=== PATIENT | male | born 1935 | race Caucasian/White ===

== ENCOUNTER 2021-02-05 08:16 | Inpatient (IN) | payer MEDICARE, OTHER ==
[~2021-02-05] VITALS: Ht 188 cm; Wt 63.1 kg
--- NOTE | 2021-02-05 08:26 | PHYS DOC ---
Past History Past Medical History: CHF (diastolic), COPD, Dementia, GERD, High Cholesterol, Hypothyroid Adult General HPI HPI Patient is a 85-year-old male presenting [facility] for shortness of breath. Patient was reportedly found in the 70s on morning rounds by medical [facility] nursing staff. He was placed on 2 L oxygen via nasal cannula and EMS was called. On arrival, patient was found to be in no acute distress with O2 saturations greater than 90% on 2 L oxygen nasal cannula and otherwise hemodynamically stable. There have been no major changes in patient's baseline health, no medication changes, no obvious sick contacts, he was recently tested for Covid at his facility and negative. Patient arrives with [facility]ent[facility] papers confirming he is full CODE STATUS Review of Systems Review of Systems Fourteen body systems of review of systems have been reviewed. See HPI for perti nent positives and negative responses, other traylor all other systems are negative, non-pertinent or non-contributory Physical Exam Physical Exam Constitutional: Well developed, age-appropriate, appears thin and malnourished, nontoxic in appearance HENT: Normocephalic, atraumatic, bilateral external ears normal, oropharynx moist, no oral exudates, nose normal. Eyes: PERRLA, EOMI, conjunctiva normal, no discharge. Neck: Normal range of motion, no tenderness, supple, no stridor. Cardiovascular: Heart rate regular, sinus rhythm, no murmurs rubs or gallops Lungs & Thorax: No increased work of breathing or obvious respiratory distress, no accessory muscle use, there are rales in bilateral lung bases Lt>Rt Abdomen: Bowel sounds normal, soft, no tenderness, no masses, no pulsatile masses. Nonsurgical abdomen, no peritoneal signs Skin: Warm, dry, no erythema, no rash. Back: No tenderness, no CVA tenderness. Extremities: No tenderness, no cyanosis, no clubbing, ROM intact, no edema. Neurologic: Alert and oriented X 3, grossly normal motor & sensory function, no focal deficits noted. Psychologic: Affect normal, judgement normal, mood normal. Current Patient Data Vital Signs Vital Signs Date Time Temp Pulse Resp B/P (MAP) Pulse Ox O2 Delivery O2 Flow Rate FiO2 02/05/21 08:24 98.4 86 18 128/75 (92) 98 2.0 Vital Signs Date Time Temp Pulse Resp B/P (MAP) Pulse Ox O2 Delivery O2 Flow Rate FiO2 02/05/21 08:24 98.4 86 18 128/75 (92) 98 2.0 Lab Results Laboratory Tests Test 02/05/21 08:35 White Blood Count 8.1 x10^3/uL Red Blood Count 3.60 x10^6/uL Hemoglobin 11.1 g/dL Hematocrit 33.1 % Mean Corpuscular Volume 92 fL Mean Corpuscular Hemoglobin 31 pg Mean Corpuscular Hemoglobin Concent 34 g/dL Red Cell Distribution Width 15.0 % Platelet Count 308 x10^3/uL Neutrophils (%) (Auto) 82 % Lymphocytes (%) (Auto) 8 % Monocytes (%) (Auto) 8 % Eosinophils (%) (Auto) 1 % Basophils (%) (Auto) 1 % Neutrophils # (Auto) 6.6 x10^3uL Lymphocytes # (Auto) 0.6 x10^3/uL Monocytes # (Auto) 0.7 x10^3/uL Eosinophils # (Auto) 0.1 x10^3/uL Basophils # (Auto) 0.0 x10^3/uL Sodium Level 142 mmol/L Potassium Level 4.0 mmol/L Chloride Level 104 mmol/L Carbon Dioxide Level 28 mmol/L Anion Gap 10 Blood Urea Nitrogen 13 mg/dL Creatinine 0.9 mg/dL Estimated GFR (Cockcroft-Gault) 79.8 Glucose Level 123 mg/dL Lactic Acid Level 1.2 mmol/L Calcium Level 8.9 mg/dL Troponin I Quantitative 0.065 ng/mL XV-Cdx-T-Type Natriuretic Peptide 63213 pg/mL Current Medications Medications (Trade) Dose Ordered Sig/Ramakrishna Route PRN Reason Start Time Stop Time Status Last Admin Dose Admin Furosemide (Lasix) 40 mg 1X ONCE IVP 02/05/21 09:15 02/05/21 09:16 UNV EKG EKG EKG ordered and interpreted by myself at 0829 hrs. as sinus rhythm at 85 bpm, unremarkable intervals, left axis deviation, T wave inversions noted in leads V4, V5 and V6, no STEMI Radiology/Procedures Radiology/Procedures EXAM: Chest, single view. HISTORY: Shortness of breath. COMPARISON: None. FINDINGS: A frontal view of the chest is obtained. There is diffuse mixed interstitial and alveolar infiltrate. There are small right and moderate left pleural effusions. There is cardiomegaly and evidence of prior CABG. There is no pneumothorax. There is incidental superior migration of the humeral heads due to chronic rotator cuff tears. 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 IMPRESSION: 1. Diffuse mixed interstitial and alveolar infiltrate. 2. Small right and moderate left pleural effusions. 3. Cardiomegaly and postoperative mediastinal changes. Electronically signed by: Jayashree Ellington MD (02/05/2021 8:35 AM) [id number] Heart Score C/O Chest Pain: No HEART Score for Chest Pain: HEART Score for Chest Pain Response (Comments) Value History Slighlty/Non-Suspicious 0 ECG Normal 0 Age > 65 2 Risk Factors >3 Risk Factors or Hx CAD 2 Troponin >1-<3x Normal Limit 1 Total 5 Risk Factors: Risk Factors: DM, Current or recent (<one month) smoker, HTN, HLP, family history of CAD, obesity. Risk Scores: Risk Factors: DM, Current or recent (<one month) smoker, HTN, HLP, family history of CAD, obesity. Course & Med Decision Making Course & Med Decision Making Airway patent, breathing unlabored, IV access and vitals obtained concerning for continued hypoxia on room air HPI limited due to underlying dementia, physical exam and comprehensive ER work- up concerning for fluid overloaded state. Per chart review it appears patient has history of pleural effusions that appear worse today than from prior visits Troponin elevated with lateral T wave inversion, likely supply demand mismatch from fluid overload in an otherwise asymptomatic individual Discussed with patient my concern about his ability to discharge back to [facility] with care he will need to become more euvolemic and rule out any life- threatening cardiopulmonary abnormalities. I discussed need for admission with hospitalist who ultimately accepted patient care at [facility] 80 mg IV Lasix administered. Patient still requiring supplemental oxygen. No chest pain/pressure or other concerning signs or symptoms. No obvious signs of infectious etiology nor coagulopathy such as pulmonary embolism at present. We will continue to mami Strickland Disclaimer Em Disclaimer This electronic medical record was generated, in whole or in part, using a voice recognition dictation system. Departure Departure: Impression: Primary Impression: Acute exacerbation of CHF (congestive heart failure) Additional Impressions: Fluid overload Elevated troponin Respiratory failure with hypoxia Disposition: ADMITTED INPATIENT Admitting Physician: Ivan Galarza Condition: STABLE Problem Qualifiers ROD KONG DO Feb 05, 2021 08:26
--- NOTE | 2021-02-05 08:38 | RAD ---
EXAM: Chest, single view. HISTORY: Shortness of breath. COMPARISON: None. FINDINGS: A frontal view of the chest is obtained. There is diffuse mixed interstitial and alveolar i nfiltrate. There are small right and moderate left pleural effusions. There is cardiomegaly and evide nce of prior CABG. There is no pneumothorax. There is incidental superior migration of the humeral he ads due to chronic rotator cuff tears. 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 IMPRESSION: 1. Diffuse mixed interstitial and alveolar infiltrate. 2. Small right and moderate left pleural effusions. 3. Cardiomegaly and postoperative mediastinal changes. Electronically signed by: Jayashree Ellington MD (02/05/2021 8:35 AM) [id number]
[2021-02-05 09:02] LABS: BASO % 1 % (0-3); EOS # 0.1 x10^3/uL (0.0-0.7); EOS % 1 % (0-3); HEMATOCRIT 33.1 % (39.0-53.0); HEMOGLOBIN 11.1 g/dL (13.0-17.5); LYMPH # 0.6 x10^3/uL (1.0-4.8); LYMPH % 8 % (24-48); MEAN CORPUSCULAR HEMOGLOBIN 31 pg (25-35); MEAN CORPUSCULAR HGB CONC 34 g/dL (31-37); MEAN CORPUSCULAR VOLUME 92 fL (79-100); MONO # 0.7 x10^3/uL (0.0-1.1); MONO % 8 % (0-9); NEUT # 6.6 x10^3uL (1.8-7.7); NEUT % 82 % (31-73); PLATELET COUNT 308 x10^3/uL (140-400); WHITE BLOOD COUNT 8.1 x10^3/uL (4.0-11.0)
[2021-02-05 09:04] LABS: CALCIUM 8.9 mg/dL (8.5-10.1); CREATININE 0.9 mg/dL (0.7-1.3); GFR 79.8
--- NOTE | 2021-02-05 09:12 | EKG ---
[address] [address] Test Date: 2021-02-05 Test Time: 08:23:04 Pat Name: [facility] Department: Room: Gender: M Staffing Analyst: : [id number] Requested By: ROD KONG Order Number: [id number] Reading MD: Ki Wray MD Measurements Intervals Mcgraw Rate: 85 P: 83 NJ: 198 QRS: -34 QRSD: 104 T: 121 QT: 390 QTc: 470 Interpretive Statements SINUS RHYTHM SEPTAL INFARCT LBBB PATTERN CONSIDER PRIOR INFERIOR INFARCT Electronically Signed On 02-05-2021 10:59:40 CDT by Ki Wray MD
[2021-02-05] MEDS ORDERED: FUROSEMIDE 40 MG/4 ML VIAL IVP ONE ×2 (09:15→09:30)
[2021-02-05] MEDS ORDERED: ACETAMINOPHEN 325 MG TABLET PO PRN (09:45)
--- NOTE | 2021-02-05 10:26 | HP ---
DATE OF SERVICE: 02/05/2021 ADMIT DATE: 02/05/2021 ATTENDING PHYSICIAN: Dr. Galarza. CHIEF COMPLAINT: Shortness of breath. HISTORY OF PRESENT ILLNESS: The patient is an 85-year-old gentleman, resident of a local retirement. He has chronic congestive heart failure. He was brought in by EMS personnel at [facility] with significant dyspnea. Supplemental oxygen was administered, saturations came up to 90%. No major change the patient's baseline health. Followup x-ray showed cardiomegaly, bilateral pleural effusions which seems to be a bit more than a previously established. He is on a small dose of Lasix, intravenous Lasix IV 80 mg was administered in the ED. He is admitted for treatment of acute on chronic congestive heart failure. PAST MEDICAL HISTORY: Significant for chronic diastolic congestive heart failure, COPD, dementia, gastroesophageal reflux disease and hypothyroidism. SURGERIES: Include coronary artery bypass and graft. ALLERGIES: He has multiple allergies including MORPHINE, LISINOPRIL, LATEX, ERYTHROMYCIN AND ZOCOR. CURRENT MEDICATIONS: From the retirement reviewed. They include the following: He was on scheduled aspirin, atropine, Coreg, Celexa, vitamin B12, omega 3 fish oil, Lasix 20 mg a day, Haldol, glucosamine, ibuprofen p.r.n., losartan and Tylenol. SOCIAL HISTORY: He is a nonsmoker, nondrinker. FAMILY HISTORY: Unobtainable. REVIEW OF SYSTEMS: Unobtainable due to the patient's condition. PHYSICAL EXAMINATION: GENERAL: When I saw him, this is a chronically ill-appearing elderly gentleman who was a bit confused. VITAL SIGNS: Initial vital signs showed a blood pressure of 128/75, temperature 98.4 degrees Fahrenheit, pulse 86 and regular, oxygen saturation is now 98% on 2 liters by nasal cannula. HEENT: Head is without trauma. Pupils are reactive. Sclerae is nonicteric. The oropharynx is clear. NECK: Supple, no bruits identified. LUNGS: Diminished breath sounds at bases. CARDIOVASCULAR: Regular heart tones. No gallop. ABDOMEN: Soft. EXTREMITIES: Without edema. NEUROLOGIC: Focally intact. Speech is fluent. He is pleasantly confused. SKIN: Warm and dry. PERTINENT LABORATORY STUDIES: Admission hemoglobin was 11.1 g/dL with a white count of 8100. BNP is 12,288. First set of cardiac enzymes slightly elevated at 0.065. Nonfasting blood sugar 123. Electrolytes within normal range. ASSESSMENT: 1. An 85-year-old gentleman with acute on chronic diastolic congestive heart failure. 2. Ischemic cardiomyopathy. 3. Coronary artery disease. 4. Underlying dementia. 5. Hypertension. 6. History of gastroesophageal reflux disease. 7. Generalized debilitation. 8. Report of type 2 diabetes. He is not on any regimen right now. PLAN: 1. Admit to the inpatient unit. 2. Daily weights with I and O's. 3. 1200 mL fluid restriction. 4. Diuresis with Lasix. 5. Serial chemistries. 6. I shall verify his code status from the retirement. His prognosis is guarded. JENNIFER DR: Carla TID: [id number] CC: Rochelle Bingham MD
[2021-02-05 12:05] VITALS: BP 131/78
--- NOTE | 2021-02-05 12:30 | NUR ---
Pt arrived to unit @ 1205 via EMS on 2L NC. KALLIE. ROBERTON. Oriented to room. Call light given to pt. Awaiting COVID PCR. Gwyn in place. Pt belongings include glasses, necklace, watch, wrist band from previous facility, pants, shirt, black socks, and tennis shoes. Items placed in green personal belongings bag and kept in room.
[2021-02-05 15:51] VITALS: BP 140/77
[2021-02-05] MEDS ORDERED: CITA10TA8 PO (16:34)
[2021-02-05] MEDS ORDERED: FURO20TA3 PO (16:34)
[2021-02-05] MEDS ORDERED: LOSA25TA11 PO (16:34)
[2021-02-05] MEDS ORDERED: HALO0.5T PO (16:34)
[2021-02-05] MEDS ORDERED: OMEG1CAP68 PO (16:34)
[2021-02-05] MEDS ORDERED: ATRO2DRO3 OS (16:34)
[2021-02-05] MEDS ORDERED: ASPI325T11 PO (16:34)
[2021-02-05] MEDS ORDERED: CARV3.1230 PO (16:34)
[2021-02-05] MEDS: CARVEDILOL 3.125 MG TABLET PO SCH (17:29)
[2021-02-05 19:10] VITALS: BP 100/62
[2021-02-05] MEDS: FUROSEMIDE 100 MG/10 ML VIAL IVP SCH (21:43)
[2021-02-05] MEDS: POTASSIUM CHLORIDE 20 MEQ TABLET.ER. PO SCH (21:43)
[2021-02-05 22:30] VITALS: BP 107/67
[2021-02-06 06:19] LABS: CALCIUM 8.8 mg/dL (8.5-10.1); GFR 70.5; POTASSIUM 3.6 mmol/L (3.5-5.1)
[2021-02-06 06:30] VITALS: BP 117/68
[2021-02-06] MEDS: POTASSIUM CHLORIDE 20 MEQ TABLET.ER. PO SCH (08:18)
[2021-02-06] MEDS: CITALOPRAM 20 MG TABLET. PO SCH (08:18)
[2021-02-06] MEDS: ASPIRIN 325 MG TABLET PO SCH (08:18)
[2021-02-06] MEDS: CARVEDILOL 3.125 MG TABLET PO SCH ×2 (08:19→17:00)
[2021-02-06] MEDS: FUROSEMIDE 100 MG/10 ML VIAL IVP SCH ×2 (08:22→14:00)
[2021-02-06] MEDS ORDERED: MAGNESIUM SULFATE 1GM 100 ML IV ONE (08:45)
--- NOTE | 2021-02-06 08:50 | PN ---
DATE: 02/06/2021 ATTENDING PHYSICIAN: Dr. Galarza. SUBJECTIVE: The patient is very confused. He cannot tell me what is going on. He does not appear to be in respiratory distress. OBJECTIVE FINDINGS: VITAL SIGNS: Blood pressure is 117/68, pulse 70 and regular, oxygen saturation 92% on 2 liters. He is afebrile. HEENT: Head is without trauma. Pupils are reactive. Sclerae nonicteric. Oropharynx clear. NECK: Supple. LUNGS: Clear. He has some minimal crackles at bases. CARDIOVASCULAR: Showed regular heart tones. No gallops. ABDOMEN: Soft. EXTREMITIES: Without edema. NEUROLOGIC: Profoundly confused. LABORATORY DATA: Serial cardiac enzymes are slightly elevated at 0.07, potassium is 3.6 mEq per liter. ASSESSMENT: 1. An 86-year-old gentleman with acute on chronic diastolic congestive heart failure. 2. Ischemic cardiomyopathy. 3. Coronary artery disease. 4. Profound dementia. 5. Hypertension. 6. Gastroesophageal reflux disease. 7. Generalized debilitation. 8. Slight elevation of troponin due to stress demand ischemia. 9. Mild hypokalemia. PLAN: 1. Continue diuresis. 2. Fluid restriction. 3. Daily weights. 4. Serial chemistries. 5. Potassium replacement. Potassium dose has been increased. 6. Magnesium replacement for refractory hypokalemia due to hypomagnesemia. 7. I will try to contact his DPOA to ascertain code status. ELYSE DR: Carla TID: [id number]
[2021-02-06] MEDS ORDERED: LOSARTAN 25 MG TABLET. PO SCH (09:00)
[2021-02-06] MEDS: POTASSIUM CHLORIDE 10 MEQ TABLET.ER. PO SCH ×2 (10:35→20:02)
[2021-02-06 11:22] VITALS: BP 82/32
[2021-02-06 13:32] VITALS: BP 93/58
[2021-02-06 15:00] VITALS: BP 98/65
[2021-02-06 19:09] VITALS: BP 94/54
[2021-02-06 22:51] VITALS: BP 117/75
[2021-02-07 05:37] VITALS: BP 117/74
[2021-02-07 06:45] LABS: CALCIUM 8.5 mg/dL (8.5-10.1); GFR 70.5; POTASSIUM 4.1 mmol/L (3.5-5.1)
--- NOTE | 2021-02-07 08:25 | RAD ---
EXAM: Chest, single view. HISTORY: Congestive heart failure. COMPARISON: 02/05/2021 FINDINGS: A frontal view of the chest is obtained. There are stable small right and moderate left ple ural effusions. There has been slight interval decrease in diffuse lower lobe predominant interstitia l infiltrate with suspected partial left lower lobe consolidation. There is a stable cardiac silhouet te and evidence of prior CABG and aortic valve replacement. There is no pneumothorax. IMPRESSION: 1. Slight interval decrease in diffuse interstitial infiltrate. 2. Stable small right and moderate left pleural effusions and suspected partial left lower lobe conso lidation. Electronically signed by: Jayashree Ellington MD (02/07/2021 8:23 AM) [id number]
--- NOTE | 2021-02-07 08:43 | PDOC2 ---
CARDIAC CONSULT DATE OF CONSULT DOS: DATE: 02/07/21 TIME: 08:37 REASON FOR CONSULT Reason for Consult CHF HTN REFERRING PHYSICIAN Referring Physician Dr. Franklin SOURCE Source: Chart review, Patient HPI History of Present Illness This is an yo male who presented from nursing facility secondary to shortness of breath. Oxygen saturation was reportedly in the 70% range. Patient unable to tell me what brought him into the hospital. He denies any chest pain, palp itations, dizziness, diaphoresis, or SOA. Just finished eating breakfast. Previous history of CABG. Details unknown. Has received IV Lasix and CXR shows improvement. PAST MEDICAL HISTORY Cardiovascular: CAD, CHF, HTN, hyperipidemia GI: GERD Psych: Anxiety, Depression Musculoskeletal: Osteoarthritis Endocrine: Hypothyroidism PAST SURGICAL HISTORY Past Surgical History: CABG FAMILY HISTORY Family History: Family History Unknown SOCIAL HISTORY ALCOHOL: none Drugs: None Lives: Care Home CURRENT MEDICATIONS Current Medications Current Medications Furosemide (Lasix) 40 mg 1X ONCE IVP Last administered on 02/05/21at 09:47; Start 02/05/21 at 09:15; Stop 02/05/21 at 09:30; Status DC Furosemide (Lasix) 40 mg 1X ONCE IVP Last administered on 02/05/21at 09:47; Start 02/05/21 at 09:30; Stop 02/05/21 at 09:31; Status DC Acetaminophen (Tylenol) 650 mg PRN Q4HRS PRN PO FEVER > 100.3'F; Start 02/05/21 at 09:45; Stop 02/06/21 at 09:44; Status DC Potassium Chloride (Klor-Con) 20 meq BID PO Last administered on 02/06/21at 08:18; Start 02/05/21 at 21:00; Stop 02/06/21 at 08:34; Status DC Furosemide (Lasix) 80 mg BID92 IVP Last administered on 02/06/21at 08:22; Start 02/05/21 at 21:00 Aspirin (Eleonora Aspirin) 325 mg DAILYWBKFT PO Last administered on 02/06/21at 08:18; Start 02/06/21 at 08:00 Carvedilol (Coreg) 3.125 mg BIDWMEALS PO Last administered on 02/06/21at 08:19; Start 02/05/21 at 17:00 Citalopram Hydrobromide (CeleXA) 20 mg DAILY PO Last administered on 02/06/21at 08:18; Start 02/06/21 at 09:00 Losartan Potassium (Cozaar) 25 mg DAILY PO Last administered on 02/06/21at 08:18; Start 02/06/21 at 09:00 Potassium Chloride (Klor-Con) 30 meq BID PO Last administered on 02/06/21at 20:02; Start 02/06/21 at 09:00 Magnesium Sulfate 100 ml @ 100 mls/hr 1X ONCE IV Last administered on 02/06/21at 10:36; Start 02/06/21 at 08:45; Stop 02/06/21 at 09:44; Status DC Active Scripts Active Reported Losartan Potassium (Losartan Potassium) 25 Mg Tablet 25 Mg PO DAILY Haloperidol 0.5 Mg Tablet 0.5 Mg PO HS Furosemide 20 Mg Tablet 1 Tab PO DAILY Fish Oil 500 Mg Softgel ([place]-3/Dha/Epa/Fish Oil) 1 Each Capsule 2 Cap PO DAILY 30 Days Celexa (Citalopram Hydrobromide) 10 Mg Tablet 10 Mg PO DAILY Carvedilol (Carvedilol) 3.125 Mg Tablet 3.125 Mg PO BIDWMEALS Atropine Sulfate 2 Ml Drops 1 Drop OS PRN 3-4XDAILY PRN Aspirin Ec (Aspirin) 325 Mg Tablet. 1 Tab PO DAILY ALLERGIES Allergies: Coded Allergies: erythromycin base (Verified Allergy, Unknown, 02/05/21) latex (Verified Allergy, Unknown, 02/05/21) lisinopril (Verified Allergy, Unknown, 02/05/21) morphine (Verified Allergy, Unknown, 02/05/21) simvastatin (Verified Allergy, Unknown, 02/05/21) ROS Review of Systems 14 point ROS conducted with pertinent positives noted above in HPI PHYSICAL EXAM General: Alert, Cooperative, No acute distress, Other (oriented to person and place ) HEENT: Atraumatic Lungs: Other (fine crackles ) Heart: Regular rate Abdomen: Soft Extremities: No edema Skin: No breakdown Neuro: Normal speech, Sensation intact Psych/Mental Status: Mood NL, Other (forgetful) MUSCULOSKELETAL: Osteoarthritic changes both hands VITALS Vital Signs Vital Signs Date Time Temp Pulse Resp B/P (MAP) Pulse Ox O2 Delivery O2 Flow Rate FiO2 02/07/21 05:37 97.7 72 18 117/74 (88) 92 Nasal Cannula 2.0 LABS LABS Laboratory Tests Test 02/05/21 09:58 02/05/21 13:20 02/05/21 16:25 02/06/21 06:03 Coronavirus (COVID-19)(PCR) Not detected (NOT DETECTD) SARS-CoV-2 Antigen (Rapid) Negative (NEGATIVE) Troponin I Quantitative 0.078 ng/mL (0-0.055) 0.072 ng/mL (0-0.055) Sodium Level 142 mmol/L (136-145) Potassium Level 3.6 mmol/L (3.5-5.1) Chloride Level 101 mmol/L (98-107) Carbon Dioxide Level 35 mmol/L (21-32) Anion Gap 6 (6-14) Blood Urea Nitrogen 13 mg/dL (8-26) Creatinine 1.0 mg/dL (0.7-1.3) Estimated GFR (Cockcroft-Gault) 70.5 Glucose Level 114 mg/dL (70-99) Calcium Level 8.8 mg/dL (8.5-10.1) Test 02/07/21 05:38 Sodium Level 140 mmol/L (136-145) Potassium Level 4.1 mmol/L (3.5-5.1) Chloride Level 102 mmol/L (98-107) Carbon Dioxide Level 36 mmol/L (21-32) Anion Gap 2 (6-14) Blood Urea Nitrogen 18 mg/dL (8-26) Creatinine 1.0 mg/dL (0.7-1.3) Estimated GFR (Cockcroft-Gault) 70.5 Glucose Level 104 mg/dL (70-99) Calcium Level 8.5 mg/dL (8.5-10.1) ASSESSMENT/PLAN Assessment/Plan 1. Acute respiratory failure secondary to CHF, pleural effusion 2. Acute on chronic probable diastolic CHF; s/p IV diuresis. CXR with improvement 3. Mild troponin elevation; peak 0.078. Most probable type II, demand ischemia in setting of above 4. CAD s/p CABG. details unknown 5. H/o hypertension; presently low end 6. Hyperlipidemia 7. Hyperthyroidism 8. Dementia Recommendation Diuresis with monitoring of renal function; will decrease Lasix to 40mg IV daily Secondary prevention Continue ASA therapy Hold Coreg, losartan as warranted with hypotension Consider outpatient echo Monitor for aspiration Supportive care TASHA WU APRN Feb 07, 2021 08:43
[2021-02-07] MEDS: FUROSEMIDE 40 MG/4 ML VIAL IVP SCH (09:11)
[2021-02-07] MEDS: POTASSIUM CHLORIDE 10 MEQ TABLET.ER. PO SCH ×2 (09:17→20:37)
[2021-02-07] MEDS: CITALOPRAM 20 MG TABLET. PO SCH (09:17)
[2021-02-07] MEDS: CARVEDILOL 3.125 MG TABLET PO SCH ×2 (09:18→17:14)
[2021-02-07] MEDS: ASPIRIN 325 MG TABLET PO SCH (09:18)
[2021-02-07 10:52] VITALS: BP 88/55
[2021-02-07 15:06] VITALS: BP 101/64
--- NOTE | 2021-02-07 17:45 | NUR ---
Nursing note: Patient's LOC x2, sometimes x 1, pleasant and cooperative most of the time. Patient ambulated with PT to shower room in [address], and sat on chair x 2 hours. BP medications adjusted, BP stable, lung sounds improved at the end of shift. Food texture modified, pt able to swallow more easily. Will continue to monitor pt's condition.
[2021-02-07 20:26] VITALS: BP 98/61
[2021-02-07] MEDS ORDERED: ATORVASTATIN CALCIUM 20 MG TABLET PO SCH (21:00)
[2021-02-07 23:17] VITALS: BP 114/72
--- NOTE | 2021-02-08 00:16 | PN ---
DATE: 02/07/2021 SUBJECTIVE: The patient is an 86-year-old male patient who is extremely demented, does not really give any useful information, who apparently lives at [facility] and who was admitted from halfway with increasing shortness of breath and hypoxia. His oxygen saturation was found to be 70%. He was placed on 2 liters of oxygen by nasal cannula and on arrival, he was found to be in acute distress with oxygen saturation greater than 90%, but was otherwise hemodynamically stable. He apparently was extensively investigated, has had an EKG as well as chest x-ray and lab work and was treated with IV Lasix when I saw him this afternoon, he denied any complaint. In particular, denied any chest pain, shortness of breath, orthopnea or paroxysmal nocturnal dyspnea. Denied any cough, phlegm or hemoptysis. Denied any swelling of his legs. OBJECTIVE: GENERAL: On examining him, he was somewhat pale, no jaundice, cyanosis, no lymphadenopathy, no thyromegaly, no jugular venous distention. No limb edema. VITAL SIGNS: Her heart rate was 66, blood pressure was 88/55, temperature was 98.4, respiratory rate was 20 and oxygen saturation was 98% on 2 liters of oxygen. HEAD, EYES, EARS, NOSE, AND THROAT: Normocephalic, atraumatic. NECK: Supple. HEART: Normal first and second heart sounds, no gallop or murmur. CHEST: Shows central trachea, equal bilateral chest expansion, air entry, vesicular breath sounds. I could not appreciate any rhonchi or crepitation anteriorly. ABDOMEN: Scaphoid, soft, nontender. NEUROLOGIC: He is demented, but without any obvious lateralizing sign. He has an indwelling Pascal catheter. His intake was 350. Output was 3350. LABORATORY DATA: As of this morning, his serum sodium was 140, potassium 4.1, chloride 102, bicarbonate 36, anion gap of 2, BUN 18, creatinine 1, estimated GFR was 70 mL per minute. His glucose was 104 and calcium was 8.5. His beta natriuretic peptide was 12,288. He has 3 sets of cardiac enzymes showed that his troponin has peaked at 0.078. He was seen in consultation by the Cardiology team. We did treat him with IV Lasix as his blood pressure is borderline, we held his losartan and cut down his Lasix to 40 mg once a day. ASSESSMENT: 1. Acute on chronic hypoxic respiratory failure, likely secondary to acute on chronic diastolic congestive heart failure together with pleural effusion. 2. Mild troponin elevation, likely type 2 demand ischemia. 3. Coronary artery disease status post CABG. 4. Hypertension. In fact, the patient has a borderline low blood pressure. 5. Hyperlipidemia. 6. Hyperthyroidism. 7. Dementia. PLAN: To continue with IV Lasix. I held his losartan. We will repeat his chest x-ray tomorrow as well as his lab work and if he remains stable, he can be discharged on oral diuretics. DEX DR: Ryne TID: [id number]
[2021-02-08 05:33] VITALS: BP 125/83
[2021-02-08 06:29] LABS: CALCIUM 8.6 mg/dL (8.5-10.1); CREATININE 0.9 mg/dL (0.7-1.3); GFR 79.6; POTASSIUM 4.3 mmol/L (3.5-5.1)
[2021-02-08] MEDS: FUROSEMIDE 40 MG/4 ML VIAL IVP SCH (08:30)
[2021-02-08] MEDS: CITALOPRAM 20 MG TABLET. PO SCH (08:31)
[2021-02-08] MEDS: CARVEDILOL 3.125 MG TABLET PO SCH (08:31)
[2021-02-08] MEDS: POTASSIUM CHLORIDE 10 MEQ TABLET.ER. PO SCH (08:31)
[2021-02-08] MEDS: ASPIRIN 325 MG TABLET PO SCH (08:35)
--- NOTE | 2021-02-08 08:56 | PDOC ---
TASHA WU NEIL 02/08/21 0855: CARDIO Progress Notes Date & Time Date of Service DATE: 02/08/21 TIME: 08:54 Time of Evaluation 08:54 Subjective Notes SOA better, no chest pain Vitals Vitals Vital Signs Date Time Temp Pulse Resp B/P (MAP) Pulse Ox O2 Delivery O2 Flow Rate FiO2 02/08/21 08:31 75 125/83 02/08/21 05:34 94 Nasal Cannula 1.0 02/08/21 05:33 97.8 18 Weight Weight [ ] Input and Output I.O. Intake and Output 02/08/21 07:00 Intake Total 760 ml Output Total 1400 ml Balance -640 ml Intake Oral 760 ml Output Urine Total 1400 ml Laboratory Labs Laboratory Tests Test 02/07/21 05:38 02/08/21 05:43 Sodium Level 140 mmol/L (136-145) 142 mmol/L (136-145) Potassium Level 4.1 mmol/L (3.5-5.1) 4.3 mmol/L (3.5-5.1) Chloride Level 102 mmol/L (98-107) 103 mmol/L (98-107) Carbon Dioxide Level 36 mmol/L (21-32) 36 mmol/L (21-32) Anion Gap 2 (6-14) 3 (6-14) Blood Urea Nitrogen 18 mg/dL (8-26) 20 mg/dL (8-26) Creatinine 1.0 mg/dL (0.7-1.3) 0.9 mg/dL (0.7-1.3) Estimated GFR (Cockcroft-Gault) 70.5 79.6 Glucose Level 104 mg/dL (70-99) 109 mg/dL (70-99) Calcium Level 8.5 mg/dL (8.5-10.1) 8.6 mg/dL (8.5-10.1) Physical Exams Lungs: Other (diminished ) Heart: RRR Abdomen: Soft N/T Extremities: No Edema Neurology: alert, follow commands Assessment Assessment 1. Acute respiratory failure secondary to CHF, pleural effusion 2. Acute on chronic probable diastolic CHF; s/p IV diuresis. CXR with improvement 3. Mild troponin elevation; peak 0.078. Most probable type II, demand ischemia in setting of above 4. CAD s/p CABG. details unknown 5. H/o hypertension; presently low end 6. Hyperlipidemia 7. Hyperthyroidism 8. Dementia Recommendation Diuresis with monitoring of renal function Secondary prevention Continue ASA therapy Hold Coreg, losartan as warranted with hypotension Consider outpatient echo Monitor for aspiration Supportive care RAFAEL HILL MD 02/09/21 1700: CARDIO Progress Notes Assessment Assessment Patient seen and examined on 02/08/2021. I agree with our nurse practitioners assessment and plan. Acute respiratory failure secondary to CHF, pleural effusion. Clinically improved. Acute on chronic probable diastolic CHF; s/p IV diuresis. CXR with improvement Mild troponin elevation; peak 0.078. Most probable type II, demand ischemia in setting of above CAD s/p CABG. details unknown. Continue ASA. H/o hypertension; presently low end. Adjusting medications as below. Hyperlipidemia Hyperthyroidism Dementia TASHA WU APRN Feb 08, 2021 08:55 RAFAEL HILL MD Feb 09, 2021 17:00
[2021-02-08 10:54] VITALS: BP 91/49
--- NOTE | 2021-02-08 14:56 | DISCH ---
DISCHARGE ORDERS DISCHARGE DATE: Feb 08, 2021 FINAL DIAGNOSIS acute on chronic hypoxic respiratory failure acute on chronic diastolic chf CONDITION AT DISCHARGE: Stable Code Status: DNR/DNI SNF STAY <30 DAYS: Yes POST DISCHARGE ORDERS: ACTIVITY ORDERS: Activity as tolerated DIET AFTER DISCHARGE: Cardiac DISCHARGE MEDICATIONS: Home Meds Reported Medications Losartan Potassium (LOSARTAN POTASSIUM ) 25 Mg Tablet, 25 MG PO DAILY for HYPERTENSION, TAB 02/05/21 Haloperidol (HALOPERIDOL) 0.5 Mg Tablet, 0.5 MG PO HS for disorientation, TAB 02/05/21 Furosemide (FUROSEMIDE) 20 Mg Tablet, 1 TAB PO DAILY for CHF, #90 TAB 1 Refill 02/05/21 Jane Lew-3/Dha/Epa/Fish Oil (FISH OIL 500 MG SOFTGEL) 1 Each Capsule, 2 CAP PO DAILY for supplement for 30 Days, #60 CAP 0 Refills 02/05/21 Citalopram Hydrobromide (CELEXA) 10 Mg Tablet, 10 MG PO DAILY for depression, T AB 02/05/21 Carvedilol (CARVEDILOL ) 3.125 Mg Tablet, 3.125 MG PO BIDWMEALS for CARDIAC, TAB 02/05/21 Atropine Sulfate (Atropine Sulfate) 2 Ml Drops, 1 DROP OS PRN 3-4XDAILY PRN for air hunger, #5 ML 0 Refills 02/05/21 Aspirin (ASPIRIN EC) 325 Mg Tablet., 1 TAB PO DAILY for CAD, #30 TAB 5 Refills 02/05/21 AVILA REICH MD Feb 08, 2021 14:56
--- NOTE | 2021-02-08 16:30 | NUR ---
Nursing note: Patient discharged to the facility where he was prior to hospitalization. Tele box, IV cath, and Pascal cath removed. Nursing report given to the receiving facility, and daughter called. Patient's discharge package handed to EMS who transported the pt.
--- NOTE | 2021-02-08 19:08 | DS ---
DATE OF DISCHARGE: 02/08/2021 HOSPITAL COURSE: The patient is an 86-year-old male patient[place] [facility] [place] with shortness of breath and acute hypoxic respiratory failure. He was diagnosed with acute on chronic diastolic congestive heart failure and large bilateral pleural effusion and was treated with IV diuretics together with fluid restriction and he did actually very well. PHYSICAL EXAMINATION: GENERAL: When I saw him today, he was sitting comfortably in his chair, no apparent respiratory distress. He was pale, but no jaundice, cyanosis or thyromegaly. No jugular venous distention. No limb edema. VITAL SIGNS: His heart rate was 68, blood pressure was 91/49, temperature was 98.4, respiratory rate 20, and oxygen saturation was 97% on 1 L of oxygen. HEAD, EYES, EARS, NOSE, AND THROAT: Normocephalic, atraumatic. NECK: Supple. HEART: Normal first and second heart sounds. No gallop, rub or murmur. CHEST: Shows central trachea, equal bilateral expansion, air entery ____ with dull percussion noted and absent breath sounds bilaterally posteriorly, more on the left than right. I could not appreciate any rhonchi. ABDOMEN: Distended, soft, nontender. NEUROLOGIC: He was demented, but without any obvious lateralizing sign. His intake over the last 24 hours was 660, output was 650. LABORATORY DATA: As of this morning, his white cell count was 8000, hemoglobin 11, hematocrit 33, MCV 92 and platelet count of 308,000. His chemistry showed a serum sodium 142, potassium 4.3, chloride 103, bicarbonate 36, anion gap of 3, BUN 20, creatinine 0.9. Estimated GFR was 79 mL per minute. His glucose 109, calcium was 8.6. DISCHARGE MEDICATIONS: [place] was [place] [facility] [place] atorvastatin 20 mg at bedtime, furosemide 40 mg once a day, potassium chloride 20 mEq twice a day, citalopram hydrobromide 20 mg daily, aspirin 325 mg once a day, and carvedilol 3.125 mg once a day. FINAL DISCHARGE DIAGNOSES: 1. Acute on chronic hypoxic respiratory failure. 2. Acute on chronic diastolic congestive heart failure. 3. Mild troponin elevation, likely type 2 demand ischemia. 4. Coronary artery disease status post coronary artery bypass graft. 5. Hypertension. The patient actually borderline hypertensive. 6. Hyperlipidemia. 7. Hypothyroidism. 8. Dementia. LOI/ATILIO/PORTER DR: Ryne TID: [id number]
== END 2021-02-08 16:30 | DRG 291 ==
LOC: ER 08:16 → 1 SOUTH 09:39
PROVIDERS: ADMIT Hospitalist; ATTEND Hospitalist
DX: I11.0 Hypertensive heart disease with heart failure (principal); I50.33 Acute on chronic diastolic (congestive) heart failure; J96.21 Acute and chronic respiratory failure with hypoxia; I24.8 Other forms of acute ischemic heart disease; E03.9 Hypothyroidism, unspecified; E05.90 Thyrotoxicosis, unspecified without thyrotoxic crisis or storm; E11.9 Type 2 diabetes mellitus without complications; E78.00 Pure hypercholesterolemia, unspecified; E78.5 Hyperlipidemia, unspecified; E87.6 Hypokalemia; F03.90 Unspecified dementia, unspecified severity, without behavioral disturbance, psychotic disturbance, mood disturbance, and anxiety; I25.10 Atherosclerotic heart disease of native coronary artery without angina pectoris; I25.5 Ischemic cardiomyopathy; J44.9 Chronic obstructive pulmonary disease, unspecified; K21.9 Gastro-esophageal reflux disease without esophagitis; Z95.1 Presence of aortocoronary bypass graft; F32.A Depression, unspecified; F41.9 Anxiety disorder, unspecified; M19.90 Unspecified osteoarthritis, unspecified site; Z88.5 Allergy status to narcotic agent; Z88.8 Allergy status to other drugs, medicaments and biological substances; Z91.040 Latex allergy status; Z20.822 Contact with and (suspected) exposure to COVID-19
CPT/HCPCS: 36415; 71045; 80048; 83605; 83880; 84484; 85025; 87426; 93005; 96374; 96375; J1940; J3475; U0003; 97110; 97116; 97530; 99285-25